=== PATIENT | female | born 2005 | race Hispanic/Latino ===

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

== ENCOUNTER 2023-05-19 16:42 | Emergency (ER) | payer OTHER ==
[~2023-05-19] VITALS: Ht 162.6 cm; Wt 63.4 kg
[~2023-05-19 16:42] MED LIST changes: +FLEXERIL5 M1 PO; +MOTRIN800 MG PO; +PRENATAL DHA200 MG PO
[2023-05-19] MEDS ORDERED: KEFLEX500 MG PO (17:49)
[2023-05-19 18:21] VITALS: BP 127/72
== END 2023-05-19 18:23 | disposition home or self-care (01) ==
LOC: ED 16:42
DX: L03.012 Cellulitis of left finger (principal)

== ENCOUNTER 2023-11-04 13:52 | Emergency (ER) | payer OTHER ==
[2023-11-04] VITALS (10 sets, daily range): BP systolic 93–126; BP diastolic 34–78
[~2023-11-04] VITALS: Ht 162.6 cm; Wt 61.2 kg
[~2023-11-04 13:52] MED LIST changes: +OMEPRAZOLE DR40 MG PO; +PHENAZOPYRIDIN100 M1 PO
[2023-11-04] MEDS ORDERED: NORGESTIMATE/ETHINYL PO (14:04)
[2023-11-04 14:25] LABS: BASO% 0.4 % (0-3); EOS% 0.8 % (0-8); HEMATOCRIT 34.9 % (37.0-47.0); HEMOGLOBIN 11.5 g/dl (12.0-16.0); LYMPH% 30.9 % (15-41); MEAN CELL VOLUME 90.9 fL CALC (80.0-100.0); MEAN CORPUSCULAR HGB 29.9 pG CALC (26.0-32.0); MONO% 7.8 % (2-13); NEUT# 3.08 thou/uL (2.00-7.15); NEUT% 60.1 % (42-76); RED BLOOD COUNT 3.84 mill/uL (4.20-5.60); RED CELL DISTRI WIDTH 12.4 % (11.5-15.5)
[2023-11-04 14:34] LABS: ALBUMIN 4.2 g/dL (3.2-5.0); ALKALINE PHOSPHATASE 37 u/l (38-126); ANION GAP 8 (6-22 (CALC)); BILIRUBIN, TOTAL 0.4 mg/dL (0.02-1.3); BUN 11 mg/dL (8-21); BUN/CREATININE RATIO 15 (12-20 (CALC)); CARBON DIOXIDE 25 mmol/l (22-30); CHLORIDE 107 mmol/l (95-108); CREATININE 0.7 mg/dL (0.5-1.0); ESTIMATED GFR 128 ML/MIN (>=90 (CALC)); POTASSIUM 3.7 mmol/l (3.5-5.1); SGOT/AST 25 u/l (14-36); SODIUM 137 mmol/l (137-146)
[2023-11-04 14:56] LABS: URINE BILIRUBIN - DIPSTICK Negative (NEGATIVE); URINE BLOOD DIPSTICK Negative (NEGATIVE); URINE GLUCOSE - DIPSTICK Negative (NEGATIVE); URINE KETONE Negative (NEGATIVE); URINE LEUK ESTERASE Trace (NEGATIVE); URINE NITRITE - DIPSTICK Negative (Negative); URINE PH 7.5 (4.5-8.0); URINE PROTEIN - DIPSTICK 30 mg/dL (NEG-TRACE); URINE UROBILINOGEN - DIPSTICK 0.2 E.U./dL (0.2)
[2023-11-04 15:00] LABS: URINE COLOR Yellow
[2023-11-04 15:08] LABS: URINE SQUAMOUS EPITHELIAL CELL MODERATE EPI/hpf (0-FEW)
[2023-11-04 15:09] LABS: URINE MUCUS MANY hpf (NONE-FEW)
[2023-11-04] MEDS ORDERED: KETOROLAC TROMETHAMINE 30 MG/ML SDV IV ONE (15:30)
[2023-11-04] MEDS ORDERED: METHOCARBAMOL 1,000 MG/10 ML VIAL IV ONE (15:30)
[2023-11-04] MEDS ORDERED: METHOCARBAMOL500 MG PO (15:51)
[2023-11-04] MEDS ORDERED: NAPROXEN500 MG PO (15:51)
== END 2023-11-04 16:25 | disposition home or self-care (01) ==
LOC: ED 13:52
PROVIDERS: Nurse Practitioner
DX: R07.89 Other chest pain (principal)